=== PATIENT | female | born 1935 | race Caucasian/White ===

== ENCOUNTER 2017-07-25 17:17 | Inpatient (IN) ==
--- NOTE | 2017-07-25 17:23 | Emergency Department Note ---
Disposition Clinical Impression: Left hip pain Disposition: Admitted As Inpatient General Adult [facility] - General Chief complaint: ED Fall Stated complaint: Fall, Hip Injury Time Seen by Provider: 07/25/17 17:20 - Related Data Home Medications Medication Instructions Recorded Confirmed Aspirin Enteric Coated [Aspirin EC] 81 mg PO DAILY 11/27/14 11/27/14 Atorvastatin [Lipitor] 40 mg PO HS 11/27/14 11/27/14 Canagliflozin [Invokana] 100 mg PO HS 11/27/14 11/27/14 Clopidogrel [Plavix] 75 mg PO DAILY 11/27/14 11/27/14 Docusate [Colace] 100 mg PO DAILY 11/27/14 11/27/14 Ezetimibe [Zetia] 10 mg PO DAILY 11/27/14 11/27/14 Ferrous Sulfate 325 mg PO BIDWM 11/27/14 11/27/14 GlipiZIDE [Glucotrol] 5 mg PO BIDWM 11/27/14 11/27/14 Lisinopril [Zestril] 20 mg PO BID 11/27/14 11/27/14 Magnesium Oxide [Mag-Ox] 400 mg PO BID 11/27/14 11/27/14 Metoprolol [Lopressor] 200 mg PO DAILY 11/27/14 11/27/14 SitaGLIPtin [Januvia] 50 mg PO DAILY 11/27/14 11/27/14 Previous Rx's Medication Instructions Recorded Diltiazem CD (24hr) [Cardizem CD] 240 mg PO DAILY #14 cap.er.24h 04/22/16 Allergies Allergy/AdvReac Type Severity Reaction Status Date / Time No Known Allergies Allergy Verified 04/12/16 15:38 Past Medical History - Past Medical History Medical history: Reports: other Psychiatric history: Reports: no psych history - Social History Smoking Status: Never smoker Smokeless Tobacco Status: No Alcohol use: Reports: none Drug use: Reports: none Attestation Statement - Attestation Attestation: I examined this patient and my medical decision-making was reviewed with the Resident Physician. I agree with the documented findings, disposition and treatment plan as described except to the extent set forth below. 81 year old familia rae to the ED with complaints of left hip pain status post fall from going up one stair and is currenlty on ASA and plavix. SHe dnies hitting her head or neck and did not have LOC. Ruchi denies any history of injury to her hip or surgery or previous dislocations or fractures. Neurovascuarly intact. We will obtain XR and pending negative frautre will attempt to reduce and then admit to medicine
[2017-07-25] MEDS ORDERED: 0.9 % Sodium Chloride 1,000 ML IVC ONE (17:27)
--- NOTE | 2017-07-25 17:27 | Emergency Department Note ---
Disposition Clinical Impression: Left displaced femoral neck fracture Disposition: Admitted As Inpatient Condition: Fair Forms: ED Satisfaction Letter Time of Disposition: 20:06 Fall HPI - General Chief Complaint: ED Fall Stated Complaint: Fall, Hip Injury Time Seen by Provider: 07/25/17 17:20 Source: patient, EMS Mode of arrival: EMS Limitations: no limitations Nursing Notes Reviewed: Yes Vital Signs Reviewed: Yes - History of Present Illness HPI Narrative: Patient is an 81-year-old female who presents to [facility] ED status post mechanical fall. Patient states she was going downstairs and thought she was already on the bottom step but then there was another step and she fell forward. States she landed on her left hip. Denies any head injury or loss of consciousness. States she was unable to move her leg to stand back up. Denies any other injury elsewhere. No chest pain, difficulty breathing, abdominal pain, problems with urination or bowel movements. Denies any prior surgeries to her knees or hips. States her sensation is intact but she is unable to move her leg much. States she has no pain at this time. 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 Denies: headache, neck pain, numbness, weakness, chest pain, shortness of breath, abdominal pain, lightheaded, vertigo - Related Data Home Medications Medication Instructions Recorded Confirmed Aspirin Enteric Coated [Aspirin EC] 81 mg PO DAILY 11/27/14 11/27/14 Atorvastatin [Lipitor] 40 mg PO HS 11/27/14 11/27/14 Canagliflozin [Invokana] 100 mg PO HS 11/27/14 11/27/14 Clopidogrel [Plavix] 75 mg PO DAILY 11/27/14 11/27/14 Docusate [Colace] 100 mg PO DAILY 11/27/14 11/27/14 Ezetimibe [Zetia] 10 mg PO DAILY 11/27/14 11/27/14 Ferrous Sulfate 325 mg PO BIDWM 11/27/14 11/27/14 GlipiZIDE [Glucotrol] 5 mg PO BIDWM 11/27/14 11/27/14 Lisinopril [Zestril] 20 mg PO BID 11/27/14 11/27/14 Magnesium Oxide [Mag-Ox] 400 mg PO BID 11/27/14 11/27/14 Metoprolol [Lopressor] 200 mg PO DAILY 11/27/14 11/27/14 SitaGLIPtin [Januvia] 50 mg PO DAILY 11/27/14 11/27/14 Previous Rx's Medication Instructions Recorded Diltiazem CD (24hr) [Cardizem CD] 240 mg PO DAILY #14 cap.er.24h 04/22/16 Allergies Allergy/AdvReac Type Severity Reaction Status Date / Time No Known Allergies Allergy Verified 04/12/16 15:38 All systems ED: reviewed and negative except as stated. Fall PMH - Past Medical History Medical history: Reports: hypertension, other Psychiatric history: Reports: no psych history - Social History Smoking Status: Never smoker Alcohol use: Reports: none Drug use: Reports: none Physical Exam - General Limitations: no limitations General appearance: alert, in no apparent distress - Head Head exam: atraumatic, normocephalic, normal inspection - Eye Eye exam: Present: normal appearance, PERRL, EOMI - ENT ENT exam: normal exam, normal oropharynx, mucous membranes moist - Neck Neck exam: Present: normal inspection, full ROM, trachea midline - Chest Chest inspection: Present: normal inspection, symmetric chest wall rise - Respiratory Respiratory exam: Present: normal lung sounds bilaterally - Cardiovascular Cardiovascular exam: Present: regular rate, normal rhythm, normal heart sounds - Abdominal Exam Abdominal exam: Present: soft, Non-Tender. Absent: tenderness, distention, guarding, rebound, rigidity - Expanded Lower Extremity Exam Hip/Pelvis exam: Present: deformity (hip ball palpated laterally), external rotation Knee exam: Present: normal inspection Lower leg exam: Present: normal inspection Ankle exam: Present: normal inspection Foot/toe exam: Present: normal inspection Neurovascular/Tendon exam: Absent: pulse deficit, sensory deficit Gait: not tested/not observed - Back Exam Back exam: Present: normal inspection, full ROM. Absent: tenderness, vertebral tenderness - Neurological Exam Neurological exam: Present: alert, oriented X3. Absent: motor sensory deficit - Psychiatric Psychiatric exam: Present: normal affect, normal mood - Skin Skin exam: Present: warm, dry, intact, normal color Course Course Narrative: Patient seen and examined. Not complaining of pain currently at this time. There is a ball hip joint palpated laterally on the left hip. Hip x-rays ordered. - Reevaluation(s) Reevaluation #1: Patient has signs of a left femoral neck fracture. Discussed with orthopedic surgeon Dr. Russell who will see the patient in consultation. Basic labs ordered. I discussed with the hospitalist Dr. Reilly who has accepted patient for admission. Time: 20:07 Vital Signs Temperature 99.0 F 07/25/17 17:17 Pulse Rate 99 07/25/17 17:17 Respiratory Rate 20 07/25/17 17:17 Blood Pressure 153/74 07/25/17 17:17 O2 Sat by Pulse Oximetry 93 07/25/17 17:17 Temperature 99.0 F 07/25/17 17:17 Pulse Rate 94 07/25/17 19:27 Respiratory Rate 18 07/25/17 19:27 Blood Pressure 138/69 07/25/17 19:27 O2 Sat by Pulse Oximetry 94 07/25/17 19:40 Oxygen Delivery Oxygen Delivery Room Air Fall - Medical Records Medical records reviewed: Yes I reviewed the patient's medical records. - Lab Data Lab results reviewed: Yes I reviewed the patient's lab results. - Radiology Data Radiology results reviewed: Yes I reviewed the patient's radiology results. Hip X-Ray 07/25/17 17:20 IMPRESSION: Left femoral neck fracture. D/ / Clemencia Mcmillan MD / Clemencia Mcmillan MD Interpreting Provider: Clemencia Mcmillan MD - EKG Data EKG attestation: Yes I reviewed and interpreted this EKG. EKG results narrative: EKG done at 1941 shows normal sinus rhythm with a rate of [address] elevation or depression noted. Normal axis. First-degree AV block noted. Occasional PVC.
[2017-07-25 20:12] LABS: Basophils % 0.2 %; Eosinophils % 0.1 %; Hematocrit 36.7 % (35.3-44.9); Hemoglobin 12.2 g/dL (11.5-15.4); Immature Granulocytes % 0.8 % (0-4); Lymphocytes # 0.8 K/mcL (0.6-4.6); Lymphocytes % 4.4 %; Mean Corpuscular HGB Conc 33.2 g/dL (31.6-35.5); Mean Corpuscular Hemoglobin 32.1 pg (28.0-33.3); Mean Corpuscular Volume 96.6 fL (83.0-100.0); Mean Platelet Volume 11.3 fL (9.4-12.4); Monocytes # 0.5 K/mcL (0.0-1.3); Monocytes % 2.9 %; Neutrophils # 15.5 K/mcL (1.6-8.9); Platelet Count 152 K/mcL (140-400); Red Cell Distribution Width 12.5 % (11.5-14.5); Segmented Neutrophils % 91.6 %
[2017-07-25 20:16] LABS: Prothrombin Time 10.6 Seconds (9.4-12.1)
[2017-07-25] MEDS ORDERED: traMADol 50 MG TABLET PO PRN (20:20)
[2017-07-25] MEDS ORDERED: Acetaminophen 325 MG TABLET PO PRN (20:20)
[2017-07-25] MEDS ORDERED: Naloxone 0.4 MG/ML INJ IVP PRN (20:20)
[2017-07-25] MEDS ORDERED: *HR* Dextrose 50 % in Water (Syg) 50 ML SYRINGE IVP PRN (20:24)
[2017-07-25] MEDS ORDERED: Dextrose Gel 15 GM/37.5 ML TUBE PO PRN ×2 (20:24)
[2017-07-25] MEDS ORDERED: D5% in Water 1,000 ML IVC PRN (20:24)
[2017-07-25 20:29] LABS: BUN/Creatinine Ratio 34 (6-26); Blood Urea Nitrogen 32 mg/dL (8-23); Calcium 9.8 mg/dL (8.6-10.3); Carbon Dioxide 21 mEq/L (23-29); Chloride 107 mEq/L (98-107); Glucose 150 mg/dL (70-105); Osmolality,Calculated 294 (280-300); Potassium 3.8 mEq/L (3.5-5.1); Sodium 137 mEq/L (136-145); eGFR For African Americans > 60 (> 60); eGFR For Non-African Americans 58 (> 60)
--- NOTE | 2017-07-25 20:30 | Internal Med History&Physical ---
<Elizabeth Sanchez - Last Filed: 07/25/17 20:37> Date of Encounter: 07/25/17 Time of Encounter: 20:28 Internal Medicine - H&P: HPI Admitted From: Home Plans for Post Hospital Care: Transfer Inp Rehab Fac History of present illness: Patient is an 81-year-old female with past medical history of CAD status post a stent placement, PVD status post stent placement, hypertension, hyperlipidemia, and diabetes who presents to [facility] ED status post mechanical fall. Patient states she was going downstairs and thought she was already on the bottom step but then there was another step and she fell forward. States she landed on her left hip. Denies any head injury or loss of consciousness. States she was unable to move her leg to stand back up. Denies any other injury elsewhere. No chest pain, difficulty breathing, abdominal pain , problems with urination or bowel movements. Denies any prior surgeries to her knees or hips. States her sensation is intact but she is unable to move her leg much. States she has no pain at this time. At the ED, x-ray of the left hip revealed femoral neck fracture, patient will be admitted as inpatient for further management, orthopedics was consulted. Past Med Surg Social Fam HX - Past Medical History Medical history: hypertension, other Psychiatric history: no psych history - Social History Smoking Status: Never smoker Smokeless Tobacco Status: No Alcohol use: none Drug use: none Internal Medicine - H&P: Meds 3 Allergy/AdvReac Type Severity Reaction Status Date / Time No Known Allergies Allergy Verified 04/12/16 15:38 All Systems PM: A 10-system review of systems was performed and is negative for pertinent findings except as documented above in the HPI. Review of systems: REVIEW OF SYSTEMS: CONSTITUTIONAL: No weight loss, fever, chills, weakness or fatigue. HEENT: Eyes: No visual loss, blurred vision, double vision or yellow sclerae. Ears, Nose, Throat: No hearing loss, sneezing, congestion, runny nose or sore throat. SKIN: No rash or itching. CARDIOVASCULAR: No chest pain, chest pressure or chest discomfort. No palpitations or edema. RESPIRATORY: No shortness of breath, cough or sputum. GASTROINTESTINAL: No anorexia, nausea, vomiting or diarrhea. No abdominal pain or blood. GENITOURINARY: No dysuria, urgency, or frequency. NEUROLOGICAL: No headache, dizziness, syncope, paralysis, ataxia, numbness or tingling in the extremities. No change in bowel or bladder control. MUSCULOSKELETAL: see HPI. HEMATOLOGIC: No anemia, bleeding or bruising. LYMPHATICS: No enlarged nodes. No history of splenectomy. PSYCHIATRIC: No history of depression or anxiety. ENDOCRINOLOGIC: No reports of sweating, cold or heat intolerance. No polyuria or polydipsia. - Constitutional Vitals: Temp Pulse Resp BP Pulse Ox 99.0 F 94 18 138/69 94 07/25/17 17:17 07/25/17 19:27 07/25/17 19:27 07/25/17 19:27 07/25/17 19:40 General appearance: Present: A&O X 3 Exam: PHYSICAL EXAMINATION: GENERAL APPEARANCE: The patient is alert, oriented and in no acute distress. HEENT: Head is normocephalic. The sinuses are nontender. Pupils are equal and reactive. The nares are patent. Oropharynx clear without lesions. NECK: Supple without lymphadenopathy. HEART: Regular rate and rhythm. LUNGS: No crackles or wheezes are heard. ABDOMEN: Soft, nontender, nondistended with good bowel sounds heard. Inguinal area is normal. EXTREMITIES: left leg shorter than right. NEUROLOGICAL: Gross nonfocal. SKIN: Warm and dry without any rash. Internal Med - H&P Results - Labs CBC & Chem 7: 07/25/17 19:51 07/25/17 19:51 - Assessment and plan (1) Left displaced femoral neck fracture Current Visit: Yes Status: Acute Assessment and plan: 81 female with past medical history of CAD, hypertension, hyperlipidemia, and diabetes presented with fall and left hip fracture. -Patient currently on aspirin and the Plavix because of CAD with stent and PVD with stent, post stents were placed more than 1 year ago. Aspirin and Plavix will hold for tonight for possible surgery in the morning. - Orthopedics consulted. Nothing by mouth after midnight year. (2) Hypertension Current Visit: No Status: Chronic Assessment and plan: BP controlled at this time, continue home medications. Qualifiers: Hypertension type: essential hypertension Qualified Code(s): I10 - Essential (primary) hypertension (3) CAD (coronary artery disease) Current Visit: No Status: Chronic Assessment and plan: Patient has no chest pain, aspirin and Plavix were on hold for tonight, continue other medications. Qualifiers: Coronary Disease-Associated Artery/Lesion type: [place] artery [place] vs. transplanted heart: [place] heart Associated angina: without angina Qualified Code(s): I25.10 - Atherosclerotic heart disease of [place] coronary artery without angina pectoris (4) PVD (peripheral vascular disease) Current Visit: No Status: Chronic Assessment and plan: Patient has no leg pain, aspirin and the Plavix were on hold for tomorrow's surgery, continue monitoring. (5) Hyperlipidemia Current Visit: No Status: Chronic Assessment and plan: Continuing home medications. Qualifiers: Hyperlipidemia type: pure hypercholesterolemia Qualified Code(s): E78.00 - Pure hypercholesterolemia, unspecified; E78.0 - Pure hypercholesterolemia (6) Diabetes mellitus Current Visit: No Status: Chronic Assessment and plan: Hold all home medications for diabetes, started patient on insulin sliding scale. Qualifiers: Diabetes mellitus type: type 2 Diabetes mellitus senior living insulin use: without truckman use Diabetes mellitus complication status: without complication Qualified Code(s): E11.9 - Type 2 diabetes mellitus without complications - Time Spent With Patient Total time spent is greater than 50% in coordination of care (as documented) at patient's floor/unit and/or counseling patient: Greater than 35 minutes <Cristofer Murry - Last Filed: 07/26/17 02:52> Date of Encounter: 07/26/17 Internal Medicine - H&P: HPI History of present illness: Ms. Guzmán is a 81 year old female All Systems PM: A 10-system review of systems was performed and is negative for pertinent findings except as documented above in the HPI. - Constitutional Vitals: Temp Pulse Resp BP Pulse Ox 99.9 F H 89 16 127/63 95 07/25/17 22:58 07/25/17 22:58 07/25/17 22:58 07/25/17 22:58 07/25/17 22:58 Internal Med - H&P Results - Labs CBC & Chem 7: 07/26/17 01:21 07/26/17 01:21 Labs: Short CBC 07/26/17 Range/Units 01:21 WBC 16.7 H (4.3-11.1) K/mcL Hgb 11.3 L (11.5-15.4) g/dL Hct 34.2 L (35.3-44.9) % Plt Count 154 (140-400) K/mcL Neutrophils # 15.8 H (1.6-8.9) K/mcL BMP 07/26/17 01:21 Sodium 136 Potassium 4.0 Chloride 108 H Carbon Dioxide 22 L BUN 26 H Creatinine 0.76 Glucose 199 H Calcium 9.5 - Attending Attestation I have seen and examined this patient independently. I have discussed with ELECTRICIAN THIRD Mr Sanchez regarding the management plan. Agree with the documentation. - Assessment and plan (1) Left displaced femoral neck fracture Current Visit: Yes Status: Acute (2) Hypertension Current Visit: No Status: Chronic Qualifiers: Hypertension type: essential hypertension Qualified Code(s): I10 - Essential (primary) hypertension (3) CAD (coronary artery disease) Current Visit: No Status: Chronic Qualifiers: Coronary Disease-Associated Artery/Lesion type: [place] artery [place] vs. transplanted heart: [place] heart Associated angina: without angina Qualified Code(s): I25.10 - Atherosclerotic heart disease of [place] coronary artery without angina pectoris (4) PVD (peripheral vascular disease) Current Visit: No Status: Chronic (5) Hyperlipidemia Current Visit: No Status: Chronic Qualifiers: Hyperlipidemia type: pure hypercholesterolemia Qualified Code(s): E78.00 - Pure hypercholesterolemia, unspecified; E78.0 - Pure hypercholesterolemia (6) Diabetes mellitus Current Visit: No Status: Chronic Qualifiers: Diabetes mellitus type: type 2 Diabetes mellitus senior living insulin use: without truckman use Diabetes mellitus complication status: without complication Qualified Code(s): E11.9 - Type 2 diabetes mellitus without complications - Time Spent With Patient Total time spent is greater than 50% in coordination of care (as documented) at patient's floor/unit and/or counseling patient:
[2017-07-25] MEDS ORDERED: Insulin LISPRO 300 UNITS/3 ML VIAL SQ SCH (21:00)
[2017-07-25] MEDS ORDERED: Lisinopril 20 MG TABLET PO SCH (21:00)
[2017-07-25] MEDS: Magnesium Oxide 400 MG TABLET PO SCH ×2 (21:27→21:30)
[2017-07-25] MEDS: 0.9 % Sodium Chloride 1,000 ML IVC SCH (21:27)
[2017-07-25] MEDS: amLODIPine 5 MG TABLET PO SCH (21:30)
[2017-07-25] MEDS: *HR* FentaNYL (PF) 100 MCG/2 ML VIAL IVP PRN (21:30)
[2017-07-26] MEDS: *HR* FentaNYL (PF) 100 MCG/2 ML VIAL IVP PRN (00:52)
[2017-07-26 01:35] LABS: Basophils % 0.2 %; Hematocrit 34.2 % (35.3-44.9); Hemoglobin 11.3 g/dL (11.5-15.4); Immature Granulocytes % 0.8 % (0-4); Lymphocytes # 0.5 K/mcL (0.6-4.6); Lymphocytes % 2.9 %; Mean Corpuscular Hemoglobin 31.7 pg (28.0-33.3); Mean Corpuscular Volume 96.1 fL (83.0-100.0); Mean Platelet Volume 11.4 fL (9.4-12.4); Monocytes # 0.3 K/mcL (0.0-1.3); Neutrophils # 15.8 K/mcL (1.6-8.9); Platelet Count 154 K/mcL (140-400); Red Blood Count 3.56 M/mcL (3.82-4.97); Red Cell Distribution Width 12.5 % (11.5-14.5); Segmented Neutrophils % 94.1 %
[2017-07-26 01:53] LABS: BUN/Creatinine Ratio 34 (6-26); Blood Urea Nitrogen 26 mg/dL (8-23); Calcium 9.5 mg/dL (8.6-10.3); Carbon Dioxide 22 mEq/L (23-29); Chloride 108 mEq/L (98-107); Glucose 199 mg/dL (70-105); Osmolality,Calculated 292 (280-300); Sodium 136 mEq/L (136-145); eGFR For African Americans > 60 (> 60); eGFR For Non-African Americans > 60 (> 60)
[2017-07-26] MEDS ORDERED: *HR* Heparin 5,000 UNIT/ML VIAL SQ SCH (06:00)
[2017-07-26] MEDS: Insulin LISPRO 300 UNITS/3 ML VIAL SQ SCH ×3 (07:45→16:28)
[2017-07-26] MEDS: amLODIPine 5 MG TABLET PO SCH ×2 (07:53→22:40)
[2017-07-26] MEDS ORDERED: (Ezetimibe [Zetia] 10 MG) PO SCH (09:00)
[2017-07-26] MEDS ORDERED: Diltiazem CD (24hr) 240 MG CAPSULE PO SCH (09:00)
[2017-07-26] MEDS ORDERED: Metoprolol XL (24 HR) Succ 50 MG TAB.ER.24H PO SCH (09:00)
[2017-07-26] MEDS: 0.9 % Sodium Chloride 1,000 ML IVC SCH (10:53)
--- NOTE | 2017-07-26 15:06 | Anesthesia Evaluation PreOp ---
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 Other Medical History: Diabetes Type II Anesthesia History: No Prior Anesthetic Complications, Past Anesthesia Alcohol Use: none Drug use: none Medications and Allergies Aspirin 81 mg PO DAILY 07/25/17 [History] Atorvastatin [Lipitor] 40 mg PO HS 07/25/17 [History] Clopidogrel [Plavix] 75 mg PO DAILY 07/25/17 [History] Ezetimibe [Zetia] 10 mg PO DAILY 07/25/17 [History] Ferrous Sulfate [Iron] 325 mg PO BID 07/25/17 [History] Magnesium Oxide [Magnesium] 400 mg PO BID 07/25/17 [History] Sitagliptin Phosphate [Januvia] 50 mg PO DAILY 07/25/17 [History] amLODIPine [Norvasc] 5 mg PO BID 07/25/17 [History] glipiZIDE [Glipizide] 10 mg PO BID 07/25/17 [History] 3 Allergy/AdvReac Type Severity Reaction Status Date / Time No Known Allergies Allergy Verified 07/26/17 11:13 - Meds/Allergy Pre-op Review Medications Reviewed: Yes Allergies Reviewed: Yes Beta Blockers on Current Med List: No Anesthesia Results - Labs 07/26/17 01:21 07/26/17 01:21 Laboratory Tests 07/25/17 07/26/17 07/26/17 19:51 01:21 01:21 WBC 16.7 H Hgb 11.3 L Hct 34.2 L Plt Count 154 PT 10.6 INR 1.0 APTT 28.0 Sodium 136 Potassium 4.0 Chloride 108 H Carbon Dioxide 22 L BUN 26 H Est GFR (Non-Af Amer) > 60 - Imaging EKG: image reviewed Additional studies: ECHO 08/2016 Impressions: LVEF 55%. LV segmental wall motion abnormalities with preserved LV systolic function. Moderate left ventricular diastolic dysfunction with elevated filling pressures. Dilated RV with normal function. Moderate mitral regurgitation. Mild tricuspid regurgitation. No pulmonary hypertension. Heart rates 30-40's during exam - appears to be sinus bradycardia with junctional escape. BP 120/70 mmHg. Patient asymptomatic. Spoke with Dr. Oh - patient has office visit scheduled Tuesday09/29/2016. Advised patient to stop Toprol for now and to seek emergent medical treatment if she becomes symptomatic. Patient expressed understanding and agreement. Left Ventricular Wall Motion: Rest Echo Findings The apical septal, mid inferior septal, basal inferior septal and basal anterior septal lundberg were hypokinetic. The mid anterior septal wall was akinetic. The apex, apical inferior, mid inferior, basal inferior, apical anterior, mid anterior and basal anterior lundberg were not visualized. All other wall segments showed normal motion. Anesthesia Exam Vital Signs Temp Pulse Resp BP Pulse Ox 07/26/17 10:53 98.5 F 84 16 136/70 95 07/26/17 06:55 98.7 F 85 16 126/65 91 07/26/17 03:25 99.1 F 83 16 123/65 95 07/25/17 22:58 99.9 F H 89 16 127/63 95 07/25/17 21:05 99.6 F 91 18 138/62 97 07/25/17 20:32 20 127/59 07/25/17 19:40 94 07/25/17 19:27 94 18 138/69 90 07/25/17 17:17 99.0 F 99 20 153/74 93 Intake and Output 07/26/17 07/26/17 07/26/17 07:59 15:59 23:59 Intake Total 1000 / 1000 Output Total 1425 / 1425 675 / 675 Balance -1425 / -1425 325 / 325 Intake: IV Fluids 1000 / 1000 0.9 % Sodium Chloride 1,000 ML 1000 / 1000 @ 75 mls/hr IVC .[id number] [facility] Rx #:[id number] Output: Catheter 1425 / 1425 675 / 675 Other: Blood Glucose* 124 - HEENT Pupil (Motor): Pupils equal, EOMI Mallampati: III Teeth: Edentulous Oral Opening: Greater than 3 - 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 OPERATOR LOC: Oriented 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 MACHINE OPERATOR Motor: Normal RUE, Normal LUE, Normal RLE, Normal Face, Deficit LLE 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 MACHINE OPERATOR Sensory: Normal: RUE, LUE, RLE, Face, Deficit: LLE - Cardiac Rhythm: Regular Murmur: None JVD: No - Pulmonary Breath Sounds: bilateral Clear Respiratory Effort: Symmetrical Anesthesia Assess/Plan ASA Score: 3 (CAD, HTN, Chol, DM) Modified Crawford Scale for Level of Consciousness: Cooperative, oriented, and tranquil Anesthetic Plan: General, Regional Autologous Blood: Yes Monitoring Plan: A-Line Recovery Plan: PACU Anes Supervising Prov Stmt: Pt seen/evaluated, R&B discussed, questions answered and consent obtained. Owen Benitez MD
[2017-07-26] MEDS ORDERED: Lidocaine -MPF 4% 5 ML AMPUL ONE (16:22)
[2017-07-26] MEDS ORDERED: Ondansetron 4 MG/2 ML VIAL ONE (16:22)
[2017-07-26] MEDS ORDERED: Lidocaine -MPF 2% 2 ML VIAL ONE (16:22)
[2017-07-26] MEDS ORDERED: *HR* Succinylcholine 200 MG/10 ML VIAL IVP ONE (16:22)
[2017-07-26] MEDS ORDERED: Dexamethasone 4 MG/ML VIAL ONE (16:22)
[2017-07-26] MEDS ORDERED: *HR* Propofol 200 MG/20 ML VIAL IVP ONE (16:23)
[2017-07-26] MEDS ORDERED: *HR* FentaNYL (PF) 100 MCG/2 ML VIAL ONE (16:23)
[2017-07-26] MEDS ORDERED: Morphine Sulfate/PF 5mg/10mL Vial ONE (16:47)
[2017-07-26] MEDS ORDERED: ceFAZolin 2,000 MG in Water for inj. (sterile) 20 ML 10 ML IVP ONE (17:04)
--- NOTE | 2017-07-26 17:11 | Orthopedic Consult Note ---
Date of Encounter: 07/26/17 Time of Encounter: 11:30 Assessment and Plan (1) Left displaced femoral neck fracture Current Visit: Yes Status: Acute Assessment: Left femoral neck fracture Plan: Discussed with Dr. Russell. Dr. Russell would like to perform a left hip hemiarthroplasty. This was discussed at length with patient as well as her grandson. All questions and concerns were addressed. After discussion of risks and benefits informed consent was obtained from the patient. This was in witness of the grandson and his spouse. Patient is to be nothing by mouth as she is planned for surgery today. Patient verbalizes understanding. We will discuss with hospitalist to ensure medical clearance for surgery today. History of Present Illness Chief complaint: Left hip pain HPI: Ms. Guzmán is a 81 year old female presented to [facility] secondary to left hip pain after fall. She states she lost her balance while going downstairs missing a step which led to a fall. She states since a fall she has had significant difficulty walking along with pain in the left hip. She states the pain is well controlled with medications. Patient states she does have a POA however she states that she signs her medical consents as well as her financial paperwork at this time. Patient does have her grandson who she states her POA, Hugo, as well as his in the room at the time of exam. On exam patient is resting comfortably in bed. She is alert and oriented 3. She is found to have an appropriate mental status examination where she is able to verbalize the year, the date, the current president, her location, and the reason for her visit. Left lower extremity is found to be shortened and rotated. She is tender to palpation of the left hip region. No skin deformity is noted to the left hip region. No calf tenderness in his bilateral calves. She is neurovascularly intact to bilateral lower extremities. No foot drop is noted in either lower extremity. Review of x-rays reveals fracture of the left femoral neck. Assessment: Left femoral neck fracture Plan: Discussed with Dr. Russell. Dr. Russell would like to perform a left hip hemiarthroplasty. This was discussed at length with patient as well as her grandson. All questions and concerns were addressed. After discussion of risks and benefits informed consent was obtained from the patient. This was in witness of the grandson and his spouse. Patient is to be nothing by mouth as she is planned for surgery today. Patient verbalizes understanding. We will discuss with hospitalist to ensure medical clearance for surgery today. Past Med Surg Social Fam HX - Past Medical History Medical history: diabetes, hypertension, other Psychiatric history: no psych history - Past Surgical History Surgical History: angioplasty/stent - Social History Smoking Status: Never smoker Smokeless Tobacco Status: No Alcohol use: none Drug use: none - Family History Mother Hx Family Cardiac Disorders: Yes (HTN) Medications and Allergies Aspirin 81 mg PO DAILY 07/25/17 [History] Atorvastatin [Lipitor] 40 mg PO HS 07/25/17 [History] Clopidogrel [Plavix] 75 mg PO DAILY 07/25/17 [History] Ezetimibe [Zetia] 10 mg PO DAILY 07/25/17 [History] Ferrous Sulfate [Iron] 325 mg PO BID 07/25/17 [History] Magnesium Oxide [Magnesium] 400 mg PO BID 07/25/17 [History] Sitagliptin Phosphate [Januvia] 50 mg PO DAILY 07/25/17 [History] amLODIPine [Norvasc] 5 mg PO BID 07/25/17 [History] glipiZIDE [Glipizide] 10 mg PO BID 07/25/17 [History] 3 Allergy/AdvReac Type Severity Reaction Status Date / Time No Known Allergies Allergy Verified 07/26/17 11:13 All Systems Reviewed: The remainder of the systems were reviewed and are negative Physical Exam - Constitutional Vitals: Temp Pulse Resp BP Pulse Ox 98.5 F 84 16 136/70 95 07/26/17 10:53 07/26/17 10:53 07/26/17 10:53 07/26/17 10:53 07/26/17 10:53 Results - Labs Result Diagrams: 07/26/17 01:21 07/26/17 01:21 Labs: Abnormal lab results WBC 16.7 K/mcL (4.3-11.1) H 07/26/17 01:21 RBC 3.56 M/mcL (3.82-4.97) L 07/26/17 01:21 Hgb 11.3 g/dL (11.5-15.4) L 07/26/17 01:21 Hct 34.2 % (35.3-44.9) L 07/26/17 01:21 Neutrophils # 15.8 K/mcL (1.6-8.9) H 07/26/17 01:21 Lymphocytes # 0.5 K/mcL (0.6-4.6) L 07/26/17 01:21 Chloride 108 mEq/L (98-107) H 07/26/17 01:21 Carbon Dioxide 22 mEq/L (23-29) L 07/26/17 01:21 BUN 26 mg/dL (8-23) H 07/26/17 01:21 BUN/Creatinine Ratio 34 (6-26) H 07/26/17 01:21 Glucose 199 mg/dL (70-105) H 07/26/17 01:21 25-OH Vitamin D Total 14 ng/mL (30-80) L 07/26/17 01:21 H & H 07/26/17 Range/Units 01:21 Hgb 11.3 L (11.5-15.4) g/dL Hct 34.2 L (35.3-44.9) % All other labs normal. Consult Discharge Plan - Plan Referrals: Adriano,Jimmy Graham MD [Primary Care Provider] -
[2017-07-26] MEDS ORDERED: *HR* Promethazine 25 MG/ML VIAL IVP PRN (17:42)
[2017-07-26] MEDS ORDERED: *HR* OxyCODONE Immed Rel 5 MG TABLET PO PRN (17:42)
[2017-07-26] MEDS ORDERED: *HR* Labetalol 20 MG/4 ML SYRINGE IVP PRN (17:42)
[2017-07-26] MEDS ORDERED: *HR* Meperidine 25 MG/ML SYRINGE IVP PRN (17:42)
[2017-07-26] MEDS ORDERED: MORPHINE SUL Oral CONC 10 MG/0.5 ML ORAL.SYG SL PRN (17:42)
[2017-07-26] MEDS ORDERED: Ondansetron 4 MG/2 ML VIAL IVP ONE (17:42)
--- NOTE | 2017-07-26 17:46 | Internal Med Progress Note ---
Date of Encounter: 07/26/17 Time of Encounter: 13:45 - Assessment and plan (1) Left displaced femoral neck fracture Current Visit: Yes Status: Acute Assessment and plan: Hip x-ray in the emergency room showed left femoral neck fracture. Orthopedic surgery consulted, plan for left hip hemiarthroplasty today. Patient has history of coronary stents, unsure MO; otherwise no risk factors on RCRI; low to intermediate risk for perioperative events from noncardiac surgery ; METS4, ADL-independent and lives alone; pain control with PRN IV Fentanyl and PO Oxycodone; postoperative PT/OT evaluation; monitor Hb closely; (2) Hypertension Current Visit: Yes Status: Chronic Qualifiers: Hypertension type: essential hypertension Qualified Code(s): I10 - Essential (primary) hypertension (3) CAD (coronary artery disease) Current Visit: Yes Status: Chronic Assessment and plan: Remote history of coronary stents. Continues to be on aspirin and Plavix. Qualifiers: Coronary Disease-Associated Artery/Lesion type: [place] artery [place] vs. transplanted heart: [place] heart Associated angina: without angina Qualified Code(s): I25.10 - Atherosclerotic heart disease of [place] coronary artery without angina pectoris (4) PVD (peripheral vascular disease) Current Visit: Yes Status: Chronic (5) Hyperlipidemia Current Visit: Yes Status: Chronic Qualifiers: Hyperlipidemia type: pure hypercholesterolemia Qualified Code(s): E78.00 - Pure hypercholesterolemia, unspecified; E78.0 - Pure hypercholesterolemia (6) Diabetes mellitus Current Visit: Yes Status: Chronic Assessment and plan: Blood sugars noted to be well controlled. Eev-fvklcbn-ewhlwvajn. Continue Accu -Chek blood glucose monitoring with sliding scale insulin as needed. Diabetic diet. Qualifiers: Diabetes mellitus type: type 2 Diabetes mellitus mcc insulin use: without mcc use Diabetes mellitus complication status: without complication Qualified Code(s): E11.9 - Type 2 diabetes mellitus without complications - Time Spent With Patient Total time spent is greater than 50% in coordination of care (as documented) at patient's floor/unit and/or counseling patient: - Subjective Interval history: Reports left hip pain due to mechanical fall. ADL independent, lives alone. No chest pain, shortness of breath, syncope. - Constitutional Vitals: Temp Pulse Resp BP Pulse Ox 98.5 F 84 16 136/70 95 07/26/17 10:53 07/26/17 10:53 07/26/17 10:53 07/26/17 10:53 07/26/17 10:53 General appearance: Present: A&O X 3, answers questions appropriately - Respiratory Respiratory exam: Present: CTAB (anterolaterally). Absent: accessory muscle use , rales, rhonchi, wheezes - Cardiovascular Cardiovascular exam: Present: RRR, +S1, +S2. Absent: diastolic murmur, gallop, rubs, systolic murmur - GI/Abdominal GI/Abdominal exam: Present: normal bowel sounds, soft, no peritoneal signs. Absent: distended, tenderness - Extremities Exam Extremities exam: Present: full ROM (restricted in left hip), warm, radial pulses palpable and symmetrical. Absent: calf tenderness, cyanotic, pedal edema - Neurological Exam Neurological exam: Present: CN II-XII intact, oriented X3, no focal deficits. Absent: pronater drift, facial droop, speech deficit Internal Medicine: Result - Labs CBC & Chem 7: 07/26/17 01:21 07/26/17 01:21 Labs: Short CBC 07/26/17 Range/Units 01:21 WBC 16.7 H (4.3-11.1) K/mcL Hgb 11.3 L (11.5-15.4) g/dL Hct 34.2 L (35.3-44.9) % Plt Count 154 (140-400) K/mcL Neutrophils # 15.8 H (1.6-8.9) K/mcL BMP 07/26/17 01:21 Sodium 136 Potassium 4.0 Chloride 108 H Carbon Dioxide 22 L BUN 26 H Creatinine 0.76 Glucose 199 H Calcium 9.5 - ABG Interpretation ABG results: PT/INR, D-dimer PT 10.6 Seconds (9.4-12.1) 07/25/17 19:51 Consult Discharge Plan - Plan Referrals: Jimmy Oh MD [Primary Care Provider] -
--- NOTE | 2017-07-26 17:58 | Anesthesia Procedures ---
Date of Encounter: 07/26/17 Time of Encounter: 17:05 Procedures: Anesthesia - Epidural/Spinal Patient examined: Yes Consent Obtained: Yes Supplemental Oxygen: Nasal Cannula Supplemental Oxygen Rate (L/min): 3 Site Prep: Sterile prep and drape, 0.5% Chlorhexidine/Alcohol Patient position: right lateral decubitus Local Anesthetic: other (0.5% Bupivacaine ) Amount of Local Anesthetic used: 2 Blood: No CSF: Yes Paresthesia: No Spinal Needle Gauge: 22 Spinal Dose: 0.5% Bupivacaine 2ml, 20mcg Fentanyl, 200mcg Duram Procedure: spinal placed by Ashvin Silva CRNA Vitals + FHT's: see OR record
--- NOTE | 2017-07-26 19:18 | Operative Note ---
Date of procedure: 07/26/17 Pre-op diagnosis: Left hip femoral neck fracture, displaced Post-op diagnosis: same Procedure: Left hip quique-arthroplasty Implants: [employer] echo system Kinematic super cable Anesthesia: spinal Surgeon: Tc Russell Was there an assistant spa director present: Yes Diabetes Educator: Carolyn Norton Estimated blood loss (cc): 250 Specimen: Sent to pathology Condition: stable Disposition: PACU Procedure in Detail: The patient received IV antibiotics in the holding area. She was brought to the operating room, sign in was performed. The patient underwent spinal anesthesia on the hospital bed. She was then transferred to the OR table in supine position. The patient was positioned in the right lateral decubitus position, supported by pelvic supports. Bony prominences of the right lower extremity were well padded. The left lower extremity was then prepped and draped in usual sterile fashion. A timeout was performed. The level of the greater trochanter was palpated, a 10-12 cm curvilinear posterior incision was made, followed by Bovie dissection. The hip abductor was sharply split in line with its fibers with a curved Han scissors, incising the fascia over the gluteus micky also. The Charnley retractors were then positioned, making sure all not to go too deeply, to protect the sciatic nerve. The bursa over the greater trochanter was excised with Bovie electrocautery. The left hip was then internally rotated, putting the short external rotators on stretch. These were taken down from the insertion point with the Bovie cautery, starting from less of a trochanter and going approximately to the femoral neck. The capsule along the posterior femoral neck and head was then T' ed, giving exposure to the fractured femoral head/neck. The head was then removed with a power corkscrew, and cutting the ligamentum teres. The head was measured and a size 45 mm diameter was chosen. The acetabulum was washed out of any bone fragments, and a trial head was placed giving a good fit. Next, the exposed fractured femoral neck was cleaned up with a rongeur, a wood box maker was then used to remove the lateral bone. The canal finder was then inserted. We then started broaching with a press-fit broaches from the [employer] echo tray. Starting with a press-fit 7, and moving up to a press-fit 13 , keeping the appropriate anteversion. A small crack was noticed, from the femoral neck going down the greater trochanter. This did not extend lower than the lesser trochanter. The trial stem was well fixed with no toggling. The broach was then removed. It was decided to stabilize the fracture line. A kinematic super cable was passed around the greater trochanter and femoral neck at its base just above the lesser trochanter. This was tensioned to moderate tension, the clip engaged and the cables cut in standard technique. The canal was irrigated out and suctioned. The [employer] Echo press-fit stem was then opened, using a lateralized 130 degree neck angle and a size 13 pressfit stem, the implant was tapped in place, making sure to keep the correct anteversion. Once well positioned, we trialed with a 45 mm diameter trial head, and a -3 mm neck length. The hip could not be reduced. We then went to a -6 mm neck length. The hip was reduced with great difficulty. Stability was checked along with leg length, it was felt that the leg length was equal. The patient had good extension of the left lower extremity, is able to flex the hip, adduct, and internally rotated up to 80 degrees before the hip started subluxing out. The trial components removed. The acetabulum was copiously irrigated with normal saline once again making sure it was well cleaned out. Next the 45 mm unipolar head was opened with a -6 mm neck length. This assembled and tapped in place. The hip was reduced, and stability was checked once again. We had good stability. The capsule was then closed with 2-0 FiberWire figure of 8 sutures. The leg was placed on Han stand, and the short external rotators were reattached to the bone using the FiberWire. The tensor fascia along with the gluteus fascia was closed with FiberWire [id number] sutures and a #1 Vicryl running suture proximally. Once again irrigating the wound with pulse lavage. The deep fat layer was closed with 0 Vicryl, subcutaneous tissues with 2-0 Vicryl simple sutures, followed by 3-0 Vicryl subcutaneously and the Zipline system. Sterile dressings were applied. A hip abduction wedge was in place between the patient's legs. She was then rolled over into supine position and transferred back onto the hospital bed where she was extubated and taken to the recovery room in stable condition.
--- NOTE | 2017-07-26 19:59 | Anesthesia Evaluation Post Op ---
Date of Encounter: 07/26/17 Time of Encounter: 20:00 - Vital Signs Vital Signs: Vital Signs/O2 Sat/Glucose, Most Current Temp Pulse Resp BP Pulse Ox 07/26/17 19:46 85 16 109/48 92 07/26/17 19:36 82 16 111/68 94 07/26/17 19:26 97.2 F L 77 16 122/56 92 - Lungs Lungs: Clear Ascult./Percussion - Airway Airway: Non-obstructed - Cardiovascular Regular Rate - Mental Status Mental Status: Alert & Oriented, Answers Appropriately - Pain Pain Scale: 0 - Nausea Vomiting Nausea Vomiting: Not Present - Hydration Hydration: Ice chips - Discharge PostOp Status: Transfer Patient to floor
[2017-07-26] MEDS ORDERED: 0.9 % Sodium Chloride 1,000 ML IVC SCH (20:29)
[2017-07-26] MEDS ORDERED: Ondansetron 4 MG/2 ML VIAL IVP PRN (20:29)
[2017-07-26] MEDS ORDERED: Sennosides 8.6 MG TABLET PO PRN (20:29)
[2017-07-26] MEDS ORDERED: Dextrose Gel 15 GM/37.5 ML TUBE PO PRN ×2 (20:29)
[2017-07-26] MEDS ORDERED: Temazepam 15 MG CAPSULE PO PRN (20:29)
[2017-07-26] MEDS ORDERED: *HR* FentaNYL (PF) 100 MCG/2 ML VIAL IVP PRN (20:29)
[2017-07-26] MEDS ORDERED: *HR* Dextrose 50 % in Water (Syg) 50 ML SYRINGE IVP PRN (20:29)
[2017-07-26] MEDS ORDERED: MOM Conc 10 ML UD.LIQ PO PRN (20:29)
[2017-07-26] MEDS ORDERED: Acetaminophen 325 MG TABLET PO PRN (20:29)
[2017-07-26] MEDS ORDERED: Naloxone 0.4 MG/ML INJ IVP PRN (20:29)
[2017-07-26] MEDS ORDERED: D5% in Water 1,000 ML IVC PRN (20:29)
[2017-07-26] MEDS ORDERED: Insulin LISPRO 300 UNITS/3 ML VIAL SQ SCH (21:00)
[2017-07-26] MEDS ORDERED: 0.9 % Sodium Chloride 500 ML IVC ONE (21:19)
[2017-07-26] MEDS: Magnesium Oxide 400 MG TABLET PO SCH (22:39)
[2017-07-26] MEDS: Ascorbic Acid 500 MG TABLET PO SCH (22:44)
[2017-07-26] MEDS: CeFAZolin Pre 2,000 MG/100 ML 2,000 MG/100 ML BAG IVPB SCH (23:38)
[2017-07-27 02:03] LABS: BUN/Creatinine Ratio 29 (6-26); Blood Urea Nitrogen 22 mg/dL (8-23); Calcium 8.6 mg/dL (8.6-10.3); Carbon Dioxide 19 mEq/L (23-29); Chloride 109 mEq/L (98-107); Glucose 225 mg/dL (70-105); Osmolality,Calculated 290 (280-300); Potassium 4.7 mEq/L (3.5-5.1); Sodium 135 mEq/L (136-145); eGFR For African Americans > 60 (> 60); eGFR For Non-African Americans > 60 (> 60)
[2017-07-27 02:21] LABS: Basophils % 0.1 %; Hematocrit 27.8 % (35.3-44.9); Hemoglobin 9.1 g/dL (11.5-15.4); Immature Granulocytes % 0.7 % (0-4); Lymphocytes # 0.3 K/mcL (0.6-4.6); Lymphocytes % 2.1 %; Mean Corpuscular HGB Conc 32.7 g/dL (31.6-35.5); Mean Corpuscular Hemoglobin 32.5 pg (28.0-33.3); Mean Corpuscular Volume 99.3 fL (83.0-100.0); Mean Platelet Volume 11.3 fL (9.4-12.4); Monocytes # 0.5 K/mcL (0.0-1.3); Neutrophils # 14.9 K/mcL (1.6-8.9); Platelet Count 132 K/mcL (140-400); Red Cell Distribution Width 12.5 % (11.5-14.5); Segmented Neutrophils % 94.1 %
[2017-07-27] MEDS: Aspirin 81 MG TAB.CHEW PO SCH (07:45)
[2017-07-27] MEDS: Ascorbic Acid 500 MG TABLET PO SCH ×2 (07:45→16:28)
[2017-07-27] MEDS: Multivit/Ca/Min/Fe/FA 1 TAB TABLET PO SCH (07:46)
[2017-07-27] MEDS: CeFAZolin Pre 2,000 MG/100 ML 2,000 MG/100 ML BAG IVPB SCH (07:47)
[2017-07-27] MEDS: Magnesium Oxide 400 MG TABLET PO SCH ×2 (07:47→20:55)
[2017-07-27] MEDS: (Ezetimibe [Zetia] 10 MG) PO SCH (07:49)
[2017-07-27] MEDS: amLODIPine 5 MG TABLET PO SCH ×2 (07:49→20:57)
[2017-07-27] MEDS: Insulin LISPRO 300 UNITS/3 ML VIAL SQ SCH ×4 (07:50→18:57)
--- NOTE | 2017-07-27 08:07 | Electrocardiograph Report ---
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
[2017-07-27] MEDS ORDERED: Ringers Solution, Lactated 1,000 ML ONE (13:33)
--- NOTE | 2017-07-27 14:44 | Electrocardiograph Report ---
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
--- NOTE | 2017-07-27 16:26 | Internal Med Progress Note ---
Date of Encounter: 07/27/17 Time of Encounter: 13:00 - Assessment and plan (1) Left displaced femoral neck fracture Current Visit: Yes Status: Acute Assessment and plan: Hip x-ray in the emergency room showed left femoral neck fracture. Orthopedic surgery consulted, underwent left hip hemiarthroplasty, POD#1. Doing well postoperatively. Noted to have a drop in hemoglobin, 9.1 today. Improving leukocytosis. Continue to monitor CBC. Pain control with when necessary Tylenol and oxycodone. Local wound care per orthopedics. DVT prophylaxis with subcutaneous Lovenox. Physical therapy evaluation noted, recommend ECF placement. client services director on board for the same. (2) Hypertension Current Visit: Yes Status: Chronic Assessment and plan: BP controlled at this time, continue home medications. Qualifiers: Hypertension type: essential hypertension Qualified Code(s): I10 - Essential (primary) hypertension (3) CAD (coronary artery disease) Current Visit: Yes Status: Chronic Assessment and plan: Remote history of coronary stents. Continues to be on aspirin and Plavix. Qualifiers: Coronary Disease-Associated Artery/Lesion type: [place] artery [place] vs. transplanted heart: [place] heart Associated angina: without angina Qualified Code(s): I25.10 - Atherosclerotic heart disease of [place] coronary artery without angina pectoris (4) PVD (peripheral vascular disease) Current Visit: Yes Status: Chronic (5) Hyperlipidemia Current Visit: Yes Status: Chronic Qualifiers: Hyperlipidemia type: pure hypercholesterolemia Qualified Code(s): E78.00 - Pure hypercholesterolemia, unspecified; E78.0 - Pure hypercholesterolemia (6) Diabetes mellitus Current Visit: Yes Status: Chronic Assessment and plan: Blood sugars noted to be elevated, likely from surgical stress. Continue Accu- Chek blood glucose monitoring, will increase sliding scale and add low-dose basal insulin. Diabetic diet. Qualifiers: Diabetes mellitus type: type 2 Diabetes mellitus [facility] insulin use: without terminal system operator use Diabetes mellitus complication status: without complication Qualified Code(s): E11.9 - Type 2 diabetes mellitus without complications - Time Spent With Patient Total time spent is greater than 50% in coordination of care (as documented) at patient's floor/unit and/or counseling patient: - Subjective Interval history: Underwent left hip surgery yesterday. Reports feeling well, mild left hip pain only on movement. Tolerates oral diet. No fever, chills, left leg swelling, chest pain or shortness of breath. Patient had an episode of hypoxia and decreased responsiveness last night shortly after her surgery, she revived with Narcan, this was thought to be likely secondary to anesthesia and narcotic analgesics. - Constitutional Vitals: Temp Pulse Resp BP Pulse Ox 97.7 F 73 18 110/62 98 07/27/17 15:12 07/27/17 15:12 07/27/17 15:12 07/27/17 15:12 07/27/17 15:12 General appearance: Present: A&O X 3, answers questions appropriately - Respiratory Respiratory exam: Present: CTAB. Absent: accessory muscle use, rales, rhonchi, wheezes - Cardiovascular Cardiovascular exam: Present: RRR, +S1, +S2. Absent: diastolic murmur, gallop, rubs, systolic murmur - Extremities Exam Extremities exam: Present: full ROM (restricted in left hip), warm, radial pulses palpable and symmetrical. Absent: calf tenderness, cyanotic, pedal edema Additional comments: left lateral hip with intact dry dressing Internal Medicine: Result - Labs CBC & Chem 7: 07/27/17 02:04 07/27/17 01:29 Labs: Short CBC 07/27/17 Range/Units 02:04 WBC 15.8 H (4.3-11.1) K/mcL Hgb 9.1 L D (11.5-15.4) g/dL Hct 27.8 L (35.3-44.9) % Plt Count 132 L (140-400) K/mcL Neutrophils # 14.9 H (1.6-8.9) K/mcL BMP 07/27/17 01:29 Sodium 135 L Potassium 4.7 Chloride 109 H Carbon Dioxide 19 L BUN 22 Creatinine 0.77 Glucose 225 H Calcium 8.6 - ABG Interpretation ABG results: PT/INR, D-dimer PT 10.6 Seconds (9.4-12.1) 07/25/17 19:51 - Impressions Impressions Hip X-Ray 07/26/17 19:30 IMPRESSION: Interval placement of left hip prosthesis. D/ / Rosaura Winters Cha, MD / Rosaura Winters Cha, MD Interpreting Provider: Rosaura Winters Cha, MD Chest X-Ray 07/26/17 22:17 IMPRESSION: Right basilar atelectasis or scarring. Otherwise negative portable study. D/ / Rosaura Winters Cha, MD / Rosaura Winters Cha, MD Interpreting Provider: Rosaura Winters Cha, MD - VTE Documentation of Mechanical Device: Intermittent pneumatic compression device Consult Discharge Plan - Plan Referrals: Adriano,Jimmy Graham MD [Primary Care Provider] -
[2017-07-27] MEDS: *HR* Enoxaparin 30 MG/0.3 ML SYRINGE SQ SCH ×2 (16:28→18:56)
--- NOTE | 2017-07-27 17:01 | Orthopedics Progress Note ---
Date of Encounter: 07/27/17 Time of Encounter: 13:15 - Assessment and Plan (1) Left displaced femoral neck fracture Current Visit: Yes Status: Acute POD#1 s/p left hip hemiarthroplasty 07/26/17 Dressings to be changed to left hip before discharge. Nursing noted bleeding overnight but none today visible on dressings. Continue with therapy, TTWB Hbg 9.1 today, hospitalist monitoring. Pain control per hospitalist. DVT prophylaxis: lovenox x 2 weeks, then aspirin 325mg x 4 weeks Plan for her to be DC to ECF ([facility]) once medically cleared. Will follow up with Siena Moser PA-C in [facility] office at [facility]. Subjective Principal diagnosis: POD#1 s/p left hip hemiarthroplasty 07/26/17 Interval history: Patient doing well with no complaint of pain. States she got up this morning with therapy and it went well. Nursing states she was unresponsive overnight and became much more alert after narcan. Patient does not remember this event but states she feels much better today but still a little drowsy. Objective Vital signs: Vital Signs Temp Pulse Resp BP Pulse Ox 07/27/17 15:12 97.7 F 73 18 110/62 98 07/27/17 11:24 98.2 F 81 16 130/65 94 07/27/17 08:12 98 07/27/17 06:55 98.3 F 80 16 115/66 99 07/27/17 03:32 98.1 F 70 16 95/61 98 07/26/17 23:49 96 07/26/17 23:45 98.3 F 76 16 97/49 96 07/26/17 22:47 98.1 F 84 18 98 07/26/17 21:38 98.2 F 77 16 104/59 94 07/26/17 20:30 91 07/26/17 20:26 98.6 F 85 16 94/59 91 07/26/17 20:05 98.1 F 75 16 84/46 94 07/26/17 19:56 97.4 F L 84 18 106/51 92 07/26/17 19:46 85 16 109/48 92 07/26/17 19:36 82 16 111/68 94 07/26/17 19:26 97.2 F L 77 16 122/56 92 Intake and Output 07/27/17 07/27/17 07/27/17 07:59 15:59 23:59 Intake Total 100 / 100 460 / 460 Output Total 200 / 200 Balance -100 / -100 460 / 460 Intake: IV Fluids 100 / 100 100 / 100 Ancef Premix 2,000 MG/100 ML 2, 100 / 100 100 / 100 000 mg In 100 ml @ 200 mls/hr IVPB Q8HR [facility] Rx#:[id number] Oral 360 / 360 Output: Catheter 200 / 200 Other: Meal Lunch Percent of Meal Consumed 80% Blood Glucose* [phone] Incision: clean and dry (dressings to left hip are c/d/i with no visible drainage or surrounding erythema, no calf tenderness to palpation. good dorsiflexion of foot. grossly NV intact.) - Labs CBC & BMP: 07/27/17 02:04 07/27/17 01:29 Labs: Abnormal lab results WBC 15.8 K/mcL (4.3-11.1) H 07/27/17 02:04 RBC 2.80 M/mcL (3.82-4.97) L 07/27/17 02:04 Hgb 9.1 g/dL (11.5-15.4) L D 07/27/17 02:04 Hct 27.8 % (35.3-44.9) L 07/27/17 02:04 Plt Count 132 K/mcL (140-400) L 07/27/17 02:04 Neutrophils # 14.9 K/mcL (1.6-8.9) H 07/27/17 02:04 Lymphocytes # 0.3 K/mcL (0.6-4.6) L 07/27/17 02:04 Sodium 135 mEq/L (136-145) L 07/27/17 01:29 Chloride 109 mEq/L (98-107) H 07/27/17 01:29 Carbon Dioxide 19 mEq/L (23-29) L 07/27/17 01:29 BUN/Creatinine Ratio 29 (6-26) H 07/27/17 01:29 Glucose 225 mg/dL (70-105) H 07/27/17 01:29 POC Glucose 328 mg/dL (70-99) H 07/27/17 16:05 25-OH Vitamin D Total 14 ng/mL (30-80) L 07/26/17 01:21 - VTE Documentation of Mechanical Device: Intermittent pneumatic compression device Consult Discharge Plan - Plan Referrals: Jimmy Oh MD [Primary Care Provider] -
[2017-07-27] MEDS: Insulin DETEMIR 100 UNIT/ML X5UNITS SQ SCH (20:57)
[2017-07-27] MEDS ORDERED: Insulin LISPRO 300 UNITS/3 ML VIAL SQ SCH (21:00)
[2017-07-28 01:47] LABS: Eosinophils % 0.1 %; Hematocrit 20.9 % (35.3-44.9); Immature Granulocytes % 0.6 % (0-4); Lymphocytes # 0.5 K/mcL (0.6-4.6); Lymphocytes % 5.4 %; Mean Corpuscular Hemoglobin 32.2 pg (28.0-33.3); Mean Corpuscular Volume 97.7 fL (83.0-100.0); Mean Platelet Volume 12.2 fL (9.4-12.4); Monocytes # 0.8 K/mcL (0.0-1.3); Monocytes % 7.5 %; Neutrophils # 8.6 K/mcL (1.6-8.9); Platelet Count 106 K/mcL (140-400); Red Blood Count 2.14 M/mcL (3.82-4.97); Red Cell Distribution Width 12.5 % (11.5-14.5); Segmented Neutrophils % 86.4 %
[2017-07-28 01:49] LABS: Hemoglobin 6.9 g/dL (11.5-15.4)
[2017-07-28 02:08] LABS: BUN/Creatinine Ratio 45 (6-26); Blood Urea Nitrogen 40 mg/dL (8-23); Carbon Dioxide 26 mEq/L (23-29); Chloride 103 mEq/L (98-107); Glucose 341 mg/dL (70-105); Osmolality,Calculated 297 (280-300); Potassium 4.4 mEq/L (3.5-5.1); Sodium 132 mEq/L (136-145); eGFR For African Americans > 60 (> 60); eGFR For Non-African Americans > 60 (> 60)
[2017-07-28] MEDS: *HR* Enoxaparin 30 MG/0.3 ML SYRINGE SQ SCH (06:16)
[2017-07-28] MEDS: Ascorbic Acid 500 MG TABLET PO SCH ×2 (08:02→17:12)
[2017-07-28] MEDS: Magnesium Oxide 400 MG TABLET PO SCH ×2 (08:02→20:54)
[2017-07-28] MEDS: Aspirin 81 MG TAB.CHEW PO SCH (08:02)
[2017-07-28] MEDS: Multivit/Ca/Min/Fe/FA 1 TAB TABLET PO SCH (08:03)
[2017-07-28] MEDS: amLODIPine 5 MG TABLET PO SCH ×2 (08:03→20:54)
[2017-07-28] MEDS: Insulin LISPRO 300 UNITS/3 ML VIAL SQ SCH ×3 (08:03→17:11)
[2017-07-28] MEDS: Insulin DETEMIR 100 UNIT/ML X5UNITS SQ SCH ×3 (08:04→20:53)
[2017-07-28] MEDS: (Ezetimibe [Zetia] 10 MG) PO SCH (08:04)
--- NOTE | 2017-07-28 09:50 | Orthopedics Progress Note ---
Date of Encounter: 07/28/17 Time of Encounter: 09:00 - Assessment and Plan (1) Left displaced femoral neck fracture Current Visit: Yes Status: Acute POD#2 s/p left hip hemiarthroplasty 07/26/17 Dressings to be changed to left hip before discharge. Hgb dropped from 9.1 to 6.9 overnight. Awaiting transfusion of 2 units RBC. Continue TTWB, therapy on hold today due to drop in Hgb Pain control per hospitalist. DVT prophylaxis: lovenox x 2 weeks, then aspirin 325mg x 4 weeks -- recommend lovenox be placed on hold until Hgb improves and stable Plan for her to be DC to ECF ([facility]) once medically cleared. Will follow up with Siena Moser PA-C in [facility] office at [facility]. Subjective Principal diagnosis: POD#2 s/p left hip hemiarthroplasty 07/26/17 Interval history: Patient states she feels very tired today and a bit weak. Minimal pain in hip. Has not worked wtih therapy yet today. Denies any other concerns at this time. Objective Vital signs: Vital Signs Temp Pulse Resp BP Pulse Ox 07/28/17 09:30 96 07/28/17 06:26 99.1 F 84 16 128/70 96 07/28/17 03:24 97.9 F 83 16 119/66 98 07/27/17 23:36 98.2 F 80 14 122/69 99 07/27/17 19:13 98.6 F 78 14 102/45 97 07/27/17 15:12 97.7 F 73 18 110/62 98 07/27/17 11:24 98.2 F 81 16 130/65 94 Intake and Output 07/27/17 07/28/17 07/28/17 23:59 07:59 15:59 Intake Total 500 / 500 120 / 120 Output Total 0 / 0 Balance 500 / 500 120 / 120 Intake: Oral 500 / 500 120 / 120 Output: Urine 0 / 0 Other: Meal Breakfast Percent of Meal Consumed 75% # Voids 1 1 Blood Glucose* [phone] Incision: clean and dry (dressings to left hip c/d/i with no visible drainage or surrounding erythema. no calf tenderness. good dorsiflexion of foot, grossly NV intact) - Labs CBC & BMP: 07/28/17 01:06 07/28/17 01:06 Labs: Abnormal lab results RBC 2.14 M/mcL (3.82-4.97) L 07/28/17 01:06 Hgb 6.9 g/dL (11.5-15.4) L D 07/28/17 01:06 Hct 20.9 % (35.3-44.9) L 07/28/17 01:06 Plt Count 106 K/mcL (140-400) L 07/28/17 01:06 Lymphocytes # 0.5 K/mcL (0.6-4.6) L 07/28/17 01:06 Sodium 132 mEq/L (136-145) L 07/28/17 01:06 BUN 40 mg/dL (8-23) H 07/28/17 01:06 BUN/Creatinine Ratio 45 (6-26) H 07/28/17 01:06 Glucose 341 mg/dL (70-105) H 07/28/17 01:06 POC Glucose 328 mg/dL (70-99) H 07/27/17 16:05 25-OH Vitamin D Total 14 ng/mL (30-80) L 07/26/17 01:21 - VTE Documentation of Mechanical Device: Intermittent pneumatic compression device Consult Discharge Plan - Plan Referrals: Jimmy Oh MD [Primary Care Provider] -
[2017-07-28] MEDS ORDERED: 0.9 % Sodium Chloride 250 ML ONE (11:09)
[2017-07-28] MEDS: traMADol 50 MG TABLET PO PRN ×2 (12:44→20:53)
[2017-07-28] MEDS ORDERED: 0.9 % Sodium Chloride Mini Bag 100 ML ONE (15:38)
--- NOTE | 2017-07-28 15:59 | Internal Med Progress Note ---
Date of Encounter: 07/28/17 Time of Encounter: 12:20 - Assessment and plan (1) Anemia Current Visit: Yes Status: Acute Assessment and plan: Acute postoperative blood loss anemia. Hemoglobin noted to have dropped to 6.9. Patient is receiving 2 units PRBC transfusion today. Continue to monitor hemoglobin. Continue oral ferrous sulfate and vitamin C supplementation. Hold DVT prophylaxis with Lovenox for now. Qualifiers: Anemia type: other cause Other causes of anemia: acute posthemorrhagic Qualified Code(s): D62 - Acute posthemorrhagic anemia (2) Left displaced femoral neck fracture Current Visit: Yes Status: Acute Assessment and plan: Hip x-ray in the emergency room showed left femoral neck fracture. Orthopedic surgery consulted, underwent left hip hemiarthroplasty, POD#2. Postop anemia, as above. Resolved leukocytosis. Continue to monitor CBC. Pain control with when necessary Tylenol and oxycodone. Local wound care per orthopedics. Hold DVT prophylaxis with subcutaneous Lovenox. Physical therapy evaluation noted, recommend ECF placement. 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 (3) Hypertension Current Visit: Yes Status: Chronic Qualifiers: Hypertension type: essential hypertension Qualified Code(s): I10 - Essential (primary) hypertension (4) CAD (coronary artery disease) Current Visit: Yes Status: Chronic Qualifiers: Coronary Disease-Associated Artery/Lesion type: [place] artery [place] vs. transplanted heart: [place] heart Associated angina: without angina Qualified Code(s): I25.10 - Atherosclerotic heart disease of [place] coronary artery without angina pectoris (5) PVD (peripheral vascular disease) Current Visit: Yes Status: Chronic (6) Hyperlipidemia Current Visit: Yes Status: Chronic Qualifiers: Hyperlipidemia type: pure hypercholesterolemia Qualified Code(s): E78.00 - Pure hypercholesterolemia, unspecified; E78.0 - Pure hypercholesterolemia (7) Diabetes mellitus Current Visit: Yes Status: Chronic Assessment and plan: Blood sugars noted to be elevated, although improved from yesterday. Continue Accu-Chek blood glucose monitoring, will increase sliding scale and basal insulin. Diabetic diet. 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 Noted to be anemic. Tolerates oral diet. Reports left foot pain, worse on lying in bed. No fever, chills, chest pain, shortness of breath, nausea, vomiting. - Constitutional Vitals: Temp Pulse Resp BP Pulse Ox 98.5 F 87 15 130/72 100 07/28/17 15:40 07/28/17 15:40 07/28/17 15:40 07/28/17 15:40 07/28/17 15:40 General appearance: Present: A&O X 3, answers questions appropriately - Respiratory Respiratory exam: Present: CTAB. Absent: accessory muscle use, rales, rhonchi, wheezes - Cardiovascular Cardiovascular exam: Present: RRR, +S1, +S2. Absent: diastolic murmur, gallop, rubs, systolic murmur - GI/Abdominal GI/Abdominal exam: Present: normal bowel sounds, soft, no peritoneal signs. Absent: distended, tenderness - Extremities Exam Extremities exam: Present: full ROM (restricted at left hip), warm, radial pulses palpable and symmetrical. Absent: calf tenderness, cyanotic, pedal edema Additional comments: left lateral hip with mild swelling, dry and intact surgical dressing Internal Medicine: Result - Labs CBC & Chem 7: 07/28/17 01:06 07/28/17 01:06 Labs: Short CBC 07/28/17 Range/Units 01:06 WBC 10.0 (4.3-11.1) K/mcL Hgb 6.9 L D (11.5-15.4) g/dL Hct 20.9 L (35.3-44.9) % Plt Count 106 L (140-400) K/mcL Neutrophils # 8.6 (1.6-8.9) K/mcL BMP 07/28/17 01:06 Sodium 132 L Potassium 4.4 Chloride 103 Carbon Dioxide 26 BUN 40 H Creatinine 0.89 Glucose 341 H Calcium 9.0 - ABG Interpretation ABG results: PT/INR, D-dimer PT 10.6 Seconds (9.4-12.1) 07/25/17 19:51 - VTE Documentation of Mechanical Device: Intermittent pneumatic compression device Consult Discharge Plan - Plan Referrals: Jimmy Oh MD [Primary Care Provider] -
[2017-07-28] MEDS ORDERED: Insulin LISPRO 300 UNITS/3 ML VIAL SQ SCH (21:00)
[2017-07-29 02:01] LABS: Basophils % 0.3 %; Eosinophils # 0.3 K/mcL (0.0-0.6); Eosinophils % 2.5 %; Hematocrit 27.8 % (35.3-44.9); Immature Granulocytes % 0.5 % (0-4); Lymphocytes # 1.2 K/mcL (0.6-4.6); Lymphocytes % 10.3 %; Mean Corpuscular HGB Conc 34.5 g/dL (31.6-35.5); Mean Corpuscular Volume 92.7 fL (83.0-100.0); Mean Platelet Volume 11.6 fL (9.4-12.4); Monocytes % 8.5 %; Neutrophils # 8.8 K/mcL (1.6-8.9); Platelet Count 120 K/mcL (140-400); Red Cell Distribution Width 15.2 % (11.5-14.5); Segmented Neutrophils % 77.9 %
[2017-07-29 02:14] LABS: Hemoglobin 9.6 g/dL (11.5-15.4)
[2017-07-29] MEDS: traMADol 50 MG TABLET PO PRN (02:34)
[2017-07-29] MEDS: Insulin LISPRO 300 UNITS/3 ML VIAL SQ SCH ×2 (08:40→12:36)
[2017-07-29] MEDS: Multivit/Ca/Min/Fe/FA 1 TAB TABLET PO SCH (08:49)
[2017-07-29] MEDS: Aspirin 81 MG TAB.CHEW PO SCH (08:49)
[2017-07-29] MEDS: Magnesium Oxide 400 MG TABLET PO SCH (08:49)
[2017-07-29] MEDS: amLODIPine 5 MG TABLET PO SCH (08:49)
[2017-07-29] MEDS: Ascorbic Acid 500 MG TABLET PO SCH (08:49)
[2017-07-29] MEDS: (Ezetimibe [Zetia] 10 MG) PO SCH (08:50)
[2017-07-29] MEDS: Insulin DETEMIR 100 UNIT/ML X5UNITS SQ SCH (11:44)
--- NOTE | 2017-07-29 13:59 | Orthopedics Progress Note ---
Date of Encounter: 07/29/17 Time of Encounter: 12:45 - Assessment and Plan (1) Left displaced femoral neck fracture Current Visit: Yes Status: Acute POD#3 s/p left hip hemiarthroplasty 07/26/17 Dressings were changed this am. Hgb back up to 9.6 after transfusion of 2 units RBC yesterday. Patient feeling much better. Continue with therapy, TTWB. Pain control per hospitalist. DVT prophylaxis: lovenox x 2 weeks, then aspirin 325mg x 4 weeks -- recommend lovenox be placed on hold until Hgb improves and stable Plan for her to be DC to ECF ([facility]) once medically cleared. Will follow up with Siena Moser PA-C in [place] office at [facility]. Subjective Principal diagnosis: POD#3 s/p left hip hemiarthroplasty 07/26/17 Interval history: Patient states she feels better today and has more energy. Worked with therapy this morning, states it went well. Denies calf pain. Denies any other concerns at this time. Objective Vital signs: Vital Signs Temp Pulse Resp BP Pulse Ox 07/29/17 10:52 98.1 F 83 16 146/70 98 07/29/17 07:00 98.7 F 91 16 128/74 96 07/29/17 03:46 98.7 F 84 16 125/69 95 07/29/17 01:04 99 F 82 15 128/69 92 07/28/17 18:56 99 F 88 16 122/63 92 07/28/17 16:03 99.0 F 97 17 119/69 93 07/28/17 15:40 98.5 F 87 15 130/72 100 07/28/17 15:12 98.8 F 84 16 123/70 96 07/28/17 14:15 98.9 F 89 15 128/67 97 Intake and Output 07/28/17 07/29/17 07/29/17 23:59 07:59 15:59 Intake Total 800 / 800 Output Total 750 / 750 750 / 750 Balance 50 / 50 -750 / -750 Intake: Oral 500 / 500 Blood Product 300 / 300 Rbcs Leuko Poor As-1 Unit 300 / 300 [id number] Output: Urine 750 / 750 750 / 750 Other: Meal Dinner Percent of Meal Consumed 35% # Voids 1 Weight 63.6 kg Blood Glucose* 189 97 167 Incision: clean and dry (dressings to left hip c/d/i with no visible drainage or surrounding erythema, no calf tenderness, good dorsiflexion of foot, grossly NV intact distally) - Labs CBC & BMP: 07/29/17 01:34 07/28/17 01:06 Labs: Abnormal lab results WBC 11.3 K/mcL (4.3-11.1) H 07/29/17 01:34 RBC 3.00 M/mcL (3.82-4.97) L 07/29/17 01:34 Hgb 9.6 g/dL (11.5-15.4) L D 07/29/17 01:34 Hct 27.8 % (35.3-44.9) L 07/29/17 01:34 RDW 15.2 % (11.5-14.5) H 07/29/17 01:34 Plt Count 120 K/mcL (140-400) L 07/29/17 01:34 Sodium 132 mEq/L (136-145) L 07/28/17 01:06 BUN 40 mg/dL (8-23) H 07/28/17 01:06 BUN/Creatinine Ratio 45 (6-26) H 07/28/17 01:06 Glucose 341 mg/dL (70-105) H 07/28/17 01:06 POC Glucose 189 mg/dL (70-99) H 07/28/17 20:50 25-OH Vitamin D Total 14 ng/mL (30-80) L 07/26/17 01:21 - VTE Documentation of Mechanical Device: Venous foot pump, device Consult Discharge Plan - Plan Referrals: Jimmy peña MD [Primary Care Provider] -
--- NOTE | 2017-07-29 14:31 | Discharge Summary ---
- NOTES TO OUTPATIENT PROVIDER Notes to Outpatient Provider: s/p left hip hemiarthroplasty; monitor Hb; Date of Encounter: 07/29/17 Time of Encounter: 14:30 - Discharge Diagnosis (1) Anemia Priority: Primary Status: Acute Qualifiers: Anemia type: other cause Other causes of anemia: acute posthemorrhagic Qualified Code(s): D62 - Acute posthemorrhagic anemia (2) Left displaced femoral neck fracture Priority: Primary Status: Acute (3) Hypertension Priority: Secondary Status: Chronic Qualifiers: Hypertension type: essential hypertension Qualified Code(s): I10 - Essential (primary) hypertension (4) CAD (coronary artery disease) Priority: Secondary Status: Chronic Qualifiers: Coronary Disease-Associated Artery/Lesion type: [place] artery [place] vs. transplanted heart: [place] heart Associated angina: without angina Qualified Code(s): I25.10 - Atherosclerotic heart disease of [place] coronary artery without angina pectoris (5) PVD (peripheral vascular disease) Priority: Secondary Status: Chronic (6) Hyperlipidemia Priority: Secondary Status: Chronic Qualifiers: Hyperlipidemia type: pure hypercholesterolemia Qualified Code(s): E78.00 - Pure hypercholesterolemia, unspecified; E78.0 - Pure hypercholesterolemia (7) Diabetes mellitus Priority: Secondary Status: Chronic Qualifiers: Diabetes mellitus type: type 2 Diabetes mellitus half-way insulin use: without half-way use Diabetes mellitus complication status: without complication Qualified Code(s): E11.9 - Type 2 diabetes mellitus without complications Hospital course: Ms. Guzmán is a 81 year old female with the above medical problems, who was admitted with left hip fracture after a mechanical fall. Orthopedic surgery was consulted and patient underwent left hip hemiarthroplasty. She recovered well but had postoperative blood loss anemia, hemoglobin improved and stabilized after 2 units PRBC transfusion. She was also started on oral ferrous sulfate and vitamin C supplements. Physical and occupational therapy evaluation was completed, recommended ECF placement, to which patient is agreeable. She is currently medically stable for discharge with outpatient orthopedics follow-up. She is being sent on DVT prophylaxis with subcutaneous Lovenox for 2 weeks, to be followed by full dose aspirin for 4 weeks. Discharge discussed with: patient, nurse - Time Spent with Patient Total time spent providing and/or coordinating discharge services: Greater than 30 minutes (40 min) - Discharge Medications Prescriptions: Enoxaparin [Lovenox] 30 mg SQ Q12HCO #22 syringe Tramadol HCl [Ultram] 50 mg PO Q6H PRN 5 Days #10 tab PRN Reason: Severe Pain Home Medications: Atorvastatin [Lipitor] 40 mg PO HS 07/25/17 [History] Ezetimibe [Zetia] 10 mg PO DAILY 07/25/17 [History] Ferrous Sulfate [Iron] 325 mg PO BID 07/25/17 [History] Magnesium Oxide [Magnesium] 400 mg PO BID 07/25/17 [History] Sitagliptin Phosphate [Januvia] 50 mg PO DAILY 07/25/17 [History] amLODIPine [Norvasc] 5 mg PO BID 07/25/17 [History] glipiZIDE [Glipizide] 10 mg PO BID 07/25/17 [History] Acetaminophen [Tylenol] 650 mg PO Q6HR PRN tablet 07/29/17 [Rx] Ascorbic Acid [Vitamin C] 500 mg PO BIDWM tablet 07/29/17 [Rx] Docusate [Colace] 100 mg PO BID capsule 07/29/17 [Rx] Enoxaparin [Lovenox] 30 mg SQ Q12HCO #22 syringe 07/29/17 [Rx] Tramadol HCl [Ultram] 50 mg PO Q6H PRN 5 Days #10 tab 07/29/17 [Rx] Allergies/Adverse Reactions: 3 Allergy/AdvReac Type Severity Reaction Status Date / Time No Known Allergies Allergy Verified 07/26/17 11:13 Date of admission: 07/25/17 20:20 Primary care physician: Jimmy Oh MD Consults: 07/26/17 20:29 Consult to Nurse Navigator [CONS] Routine Comment: ortho navigator Consult to Occupational Therapy [CONS] Routine Comment: Evaluate, develop and implement POC Reason for Consult: total hip replacement Does patient have active BEDREST order?: No Is patient medically & hemodynamically stable?: Yes Consult to Physical Therapy [CONS] Routine Comment: Evaluate, develop and implement POC Reason for Consult: total hip replacement Does patient have active BEDREST order?: No Is patient medically & hemodynamically stable?: Yes Consult to Watch Band Assembler [CONS] Routine Reason for SW Consult: post op joint replacement RT Post Op Consult [CONS] Routine Discharging clinician: Alma Lopez Anticipated date of discharge: 07/29/17 - Constitutional Vitals: Temp Pulse Resp BP Pulse Ox 98.1 F 83 16 146/70 98 07/29/17 10:52 07/29/17 10:52 07/29/17 10:52 07/29/17 10:52 07/29/17 10:52 General appearance: Present: A&O X 3, answers questions appropriately - Cardiovascular Cardiovascular exam: Present: RRR, +S1, +S2. Absent: diastolic murmur, gallop, rubs, systolic murmur - Patient Status Disposition: Transfer SNF Condition: Fair Functional capacity at discharge: uses cane/walker Overall status at discharge: patient is progressing back to baseline - Discharge Instructions Follow Up With: Jimmy Oh MD [Primary Care Provider] - Additional Instructions: Discharge Instructions: Hip Hemiarthroplasty Please call [facility] ([phone]), your Primary Care Physician, or report to the Emergency Room if you have any of the following symptoms: Nausea, vomiting, fever greater that 101.5, swelling, chest pain, shortness of breath, increased pain/redness/drainage/odor for your incision site, numbness/ tingling, or any other concerning symptoms. ACTIVITY:Weight-bearing as tolerated for 8 weeks with hip dislocation precautions that physical therapy taught you. You may progress as tolerated under the guidance of your physical therapist. You do not need to sleep with a pillow between your legs. You can also seep on the operative side or on your stomach. MEDICATIONS: Upon discharge resume your home medications. Take all the medications as prescribed. Take a stool softener if taking narcotic pain medications. Stool softeners are only effective if you drink enough fluids. Drink 6-8 glass of water or fluids a day, unless this is not allowed for another health problem. Despite using stool softeners, if you haven't had a bowel movement in 3 days, please switch to a gentle laxative. Gentle laxatives are sold over the counter. You should have a bowel movement within 24 hours, if not call the office. You will be discharged from the hospital with a prescription for pain medication. You are encouraged to decrease the use of narcotic pain medication as tolerated. Should you require a refill, please call the office. [facility] prescribes narcotic pain medication for only 4-6 weeks after surgery. If you require pain medication beyond this time period, you may be referred to your Primary Care Physician or to the Pain Clinic for further evaluation. Plan ahead for refills on pain medication as many narcotics either need to be picked up at the office or mailed. It is best to call 48-72 hours in advance of needing a prescription refill so you don't run out of medication. To help control the post-operative pain, you may take NSAIDs (Aleve,Advil, Motrin, ibuprofen, naprosyn) or Tylenol as prescribed on the bottle in addition to the pain medication. ANTICOAGULATION (blood thinners): Continue your Aspirin, Lovenox or Coumadin as prescribed to help prevent a blood clot in the leg or in the lungs. As long as your incision remains dry and you tolerate the NSAIDs (Aleve, Advil, Motrin, Ibuprofen, Naprosyn), it is OK to use the NSAIDS while you are taking your anticoagulation medication. Should your incision start to drain, stop the NSAID and contact our office. Common symptoms of blood clot in the legs include: localized pain, swelling, calf tenderness, redness or discoloration of the skin. Blood clot in the lung symptoms include: shortness of breath, rapid pulse, sweating, and chest pain that worsens with deep breathing, coughing up blood, lightheadedness, feelings of anxiety. If you experience any of these symptoms notify your physician immediately, go to the emergency room, or if having trouble breathing, call 911. WOUND CARE: Leave the dressing on for 7 to 10days. You may change the dressing if it is saturated greater than 50%. Do not get the dressing wet at anytime. Wash your hands with antibacterial soap, rinse and dry prior to any wound care. If you have carson the visiting nurse or rehab facility can remove the stapes 10-14 days after surgery and place steri-strips across the wound. Leave the steri-strips in place until they fall off on their own. You may let water from the shower run on top of the steri-strips. If you do not have a visiting nurse or rehab facility, you will need to return to the office at 10-14 days for the carson to be removed. If you have itching or redness around the dressing call the office. FOLLOW-UP: Please follow up with your surgeon in the orthopedic clinic in 6 weeks from the day of surgery. If you have carson that need to be removed, you will need to come back to the office in 10-14 days from the day of surgery. F/up with PCP in 1-2 weeks F/up with Orthopedics as scheduled - Diet and Activity Activity: as per physical therapy, wear oxygen at all times (PRN to keep O2 sat> 90%) Diet: diabetic diet, low fat, low cholesterol, low salt diet - VTE Documentation of Mechanical Device: Venous foot pump, device
--- NOTE | 2017-07-29 14:42 | Physician Discharge Referral ---
ExtendedCare Referral Info Transfer To: [facility] Provider in Charge: Alma Lopez Provider in Charge after Transfer: PCP Institutional Level of Care: Skilled - Diagnosis (1) Anemia Priority: Primary Status: Acute (2) Left displaced femoral neck fracture Priority: Primary Status: Acute (3) Hypertension Priority: Secondary Status: Chronic (4) CAD (coronary artery disease) Priority: Secondary Status: Chronic (5) PVD (peripheral vascular disease) Priority: Secondary Status: Chronic (6) Hyperlipidemia Priority: Secondary Status: Chronic (7) Diabetes mellitus Priority: Secondary Status: Chronic Expected Duration of Placement: 3 weeks Prognosis: Good Aware of Diagnosis: Patient Aware of Prognosis: Patient - Transfer Medications Prescriptions: Enoxaparin [Lovenox] 30 mg SQ Q12HCO #22 syringe Home Medications: Atorvastatin [Lipitor] 40 mg PO HS 07/25/17 [History] Ezetimibe [Zetia] 10 mg PO DAILY 07/25/17 [History] Ferrous Sulfate [Iron] 325 mg PO BID 07/25/17 [History] Magnesium Oxide [Magnesium] 400 mg PO BID 07/25/17 [History] Sitagliptin Phosphate [Januvia] 50 mg PO DAILY 07/25/17 [History] amLODIPine [Norvasc] 5 mg PO BID 07/25/17 [History] glipiZIDE [Glipizide] 10 mg PO BID 07/25/17 [History] Acetaminophen [Tylenol] 650 mg PO Q6HR PRN tablet 07/29/17 [Rx] Ascorbic Acid [Vitamin C] 500 mg PO BIDWM tablet 07/29/17 [Rx] Docusate [Colace] 100 mg PO BID capsule 07/29/17 [Rx] Enoxaparin [Lovenox] 30 mg SQ Q12HCO #22 syringe 07/29/17 [Rx] Allergies/Adverse Reactions: 3 Allergy/AdvReac Type Severity Reaction Status Date / Time No Known Allergies Allergy Verified 07/26/17 11:13 - Respiratory Orders Oxygen / L per min (1-2L/min via [place] PRN) Smoking Cessation: Smoking cessation has been advised. For more information, call the [place] Tobacco Quit Line at 9-265-HNRQ-NOW. - Advance Directives Code Status: Full Code - Mobility Orders Ambulate - Rehabiliation Orders Rehab Potential: Fair Rehab Orders: ROM Exercises, Evaluation for Physical Therapy, Evaluation for Occupational Therapy - Diet Orders No Concentrated Sweets (diabetic), Cardiac CERTIFICATION: I certify that the transfer of the above named patient to an Extended Care Facility is necessary for the continuing treatment of the diagnosis listed. The above information is true and accurate reflection of patient's current condition. Confidential - Redisclosure prohibited without a patient's written consent.
[2017-07-29 16:55] VITALS: BP 144/76
== END 2017-07-29 17:19 | DRG 470 ==
LOC: EMEROO 17:17 → 3NENU 17:17 → SUATTDRO 20:20 → 3NENU 20:20
PROVIDERS: ADMIT Internal Medicine; ATTEND Internal Medicine